=== PATIENT | male | born 1990 ===

== ENCOUNTER 2017-06-25 09:01 | Emergency (ER) | payer OTHER ==
[2017-06-25 09:14] VITALS: BP 132/87
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
--- NOTE | 2017-06-25 13:28 | CR ---
Left shoulder: Three views of the left shoulder were obtained. Glenohumeral joint and acromioclavicular joint appears within normal limits. No fracture, dislocation or other bony abnormality is seen. Impression: 1. No abnormality is identified on three-view left shoulder study. Diagnostic code #1
== END 2017-06-25 10:45 | disposition home or self-care (01) ==
LOC: JD.ED 09:01
DX: S43.402A Unspecified sprain of left shoulder joint, initial encounter (principal); F17.210 Nicotine dependence, cigarettes, uncomplicated; V18.0XXA Pedal cycle driver injured in noncollision transport accident in nontraffic accident, initial encounter
CPT/HCPCS: 73030-26-LT; 73030-LT; 99283